=== PATIENT | female | born 1975 | race Caucasian/White ===

== ENCOUNTER 2017-07-23 12:41 | Emergency (ER) | payer OTHER ==
[~2017-07-23] VITALS: Ht 160 cm; Wt 68.0 kg
[~2017-07-23 12:41] MED LIST: ARIP2TAB3; CARB100T19 PO
[2017-07-23 12:45] VITALS: BP 123/64
[2017-07-23] MEDS ORDERED: BENZOIN COMPOUND TINCT 60 ML BOTTLE ONE (12:57)
[2017-07-23] MEDS ORDERED: BENZOIN COMPOUND TINCT 60 ML BOTTLE MM ONE (13:00)
== END 2017-07-23 13:15 | disposition home or self-care (01) ==
LOC: ER 12:42
DX: S61.210A Laceration without foreign body of right index finger without damage to nail, initial encounter (principal); F31.9 Bipolar disorder, unspecified; Z88.8 Allergy status to other drugs, medicaments and biological substances; W26.0XXA Contact with knife, initial encounter; Y93.89 Activity, other specified; Y92.89 Other specified places as the place of occurrence of the external cause; Y99.8 Other external cause status
CPT/HCPCS: 29130; 99283; A4606; Z7610